=== PATIENT | female | born 1945 | race African-American/Black ===

== ENCOUNTER 2017-09-01 17:44 | Inpatient (IN) | payer MEDICARE ==
[~2017-09-01] VITALS: Ht 165.1 cm; Wt 77.1 kg
[2017-09-01] MEDS ORDERED: ACETAMINOPHEN 325 MG TABLET PO ONE (19:00)
[2017-09-01] MEDS ORDERED: SODIUM CHLORIDE FLUSH 10ML SYR IVF ONE (19:00)
[2017-09-01 19:13] LABS: BASOPHILS # (AUTO) 0.07 x10^3/uL (0-0.1); BASOPHILS % (AUTO) 1 % (0-1); EOSINOPHILS # (AUTO) 0.05 x10^3/uL (0-0.4); EOSINOPHILS % (AUTO) 1 % (1-7); LYMPHOCYTES % (AUTO) 23 % (22-44); MD NO; MEAN CORPUSCULAR HEMOGLOBIN 36.8 pg (27.0-34.8); MEAN CORPUSCULAR HGB CONC 33.8 g/dL (32.4-35.8); MEAN CORPUSCULAR VOLUME 108.9 fL (80-100); MEAN PLATELET VOLUME 8.1 fL (7.4-10.4); MONOCYTES # (AUTO) 0.86 x10^3/uL (0.2-0.8); MONOCYTES % (AUTO) 10 % (2-9); NEUTROPHILS # (AUTO) 5.91 x10^3/uL (1.8-6.8); NEUTROPHILS % (AUTO) 66 % (42-75); PLATELET COUNT 188 x10^3/uL (130-400); RED BLOOD COUNT 4.01 x10^6/uL (3.82-5.3); RED CELL DISTRIBUTION WIDTH 17.4 % (9.6-15.2)
[2017-09-01 19:23] LABS: ALANINE AMINOTRANSFERASE 14 U/L (12-78); ALBUMIN 3.4 g/dL (3.4-5.0); ANION GAP 5 mmol/L (5-15); CHLORIDE 100 mmol/L (98-107); CREATININE 0.81 mg/dL (0.55-1.02)
[2017-09-01 19:26] LABS: ALKALINE PHOSPHATASE 96 U/L (45-117); BILIRUBIN,TOTAL 1.4 mg/dL (0.2-1.0); TOTAL PROTEIN 7.8 g/dL (6.4-8.2)
[2017-09-01] MEDS ORDERED: LIDOCAINE 1%, 10ML INFIL ONE (20:00)
[2017-09-01] MEDS ORDERED: ACETAMINOPHEN 325 MG TABLET ONE (20:10)
[2017-09-01] MEDS ORDERED: LIDOCAINE-MPF 1%, 2ML ONE (20:58)
[2017-09-01 23:15] LABS: HCT (SEDRATE) 40.1 % (34.6-47.8)
[2017-09-02] MEDS ORDERED: KETOROLAC 30 MG/1 ML IVPush ONE
[2017-09-02] MEDS ORDERED: KETOROLAC 30 MG/1 ML ONE (00:05)
[2017-09-02] MEDS ORDERED: POTASSIUM CHLORIDE 40 MEQ in SODIUM CHLORIDE 0.9% 500 ML IV ONE ×3 (00:30→12:00)
[2017-09-02] MEDS ORDERED: BISACODYL 10 MG SUPP PR PRN (00:30)
[2017-09-02] MEDS ORDERED: hydrALAzine 20 MG/ML, 1ML IVPush PRN (00:30)
[2017-09-02] MEDS ORDERED: DOCUSATE 100 MG CAPSULE PO PRN (00:30)
[2017-09-02] MEDS ORDERED: ONDANSETRON 2MG/ML, 2ML IVPush PRN (00:30)
[2017-09-02] MEDS ORDERED: POLYETHYLENE GLYCOL 17 GM PACKET PO PRN (00:30)
[2017-09-02] MEDS ORDERED: KETOROLAC 30 MG/1 ML IVPush PRN (00:30)
[2017-09-02] MEDS ORDERED: ACETAMINOPHEN 325 MG TABLET PO PRN (00:30)
[2017-09-02 01:02] LABS: FOLATE LEVEL 3.7 ng/mL (3.1-17.5)
[2017-09-02 02:33] VITALS: BP 148/80
[2017-09-02 05:19] LABS: BASOPHILS # (AUTO) 0.02 x10^3/uL (0-0.1); BASOPHILS % (AUTO) 0 % (0-1); EOSINOPHILS # (AUTO) 0.07 x10^3/uL (0-0.4); EOSINOPHILS % (AUTO) 1 % (1-7); LYMPHOCYTES # (AUTO) 2.11 x10^3/uL (1-3.4); LYMPHOCYTES % (AUTO) 30 % (22-44); MD NO; MEAN CORPUSCULAR HEMOGLOBIN 36.6 pg (27.0-34.8); MEAN CORPUSCULAR HGB CONC 33.4 g/dL (32.4-35.8); MEAN CORPUSCULAR VOLUME 109.5 fL (80-100); MEAN PLATELET VOLUME 8.4 fL (7.4-10.4); MONOCYTES # (AUTO) 0.83 x10^3/uL (0.2-0.8); MONOCYTES % (AUTO) 12 % (2-9); NEUTROPHILS # (AUTO) 4.02 x10^3/uL (1.8-6.8); NEUTROPHILS % (AUTO) 57 % (42-75); PLATELET COUNT 163 x10^3/uL (130-400); RED BLOOD COUNT 3.32 x10^6/uL (3.82-5.3)
[2017-09-02 05:33] LABS: CHLORIDE 102 mmol/L (98-107)
[2017-09-02 05:40] LABS: ALANINE AMINOTRANSFERASE 12 U/L (12-78); ALBUMIN 2.7 g/dL (3.4-5.0); ALKALINE PHOSPHATASE 98 U/L (45-117); ANION GAP 5 mmol/L (5-15); CALCIUM 8.3 mg/dL (8.5-10.1); CREATININE 0.99 mg/dL (0.55-1.02); TOTAL PROTEIN 6.1 g/dL (6.4-8.2)
[2017-09-02] MEDS ORDERED: MAGNESIUM SULFATE PMX 4GM/100M 100 ML IV ONE ×2 (06:30→07:30)
[2017-09-02] MEDS ORDERED: VANCOMYCIN PER PHARMACY MC PRN (07:30)
[2017-09-02] MEDS ORDERED: MAGNESIUM SULFATE IN WATER 50 ML IV ONE (07:30)
[2017-09-02] MEDS ORDERED: PHARMACOKINETIC CONSULTATION MC ONE (08:00)
[2017-09-02] MEDS ORDERED: PHARMACOKINETIC MONITORING MC PRN (08:00)
[2017-09-02] MEDS ORDERED: POTASSIUM CHLORIDE 20 MEQ TAB.ER.PRT PO SCH (08:00)
[2017-09-02] MEDS: CEFTRIAXONE 2 GM in SODIUM CHLORIDE 0.9% 50 ML IV SCH (08:11)
[2017-09-02] MEDS: FOLIC ACID 1 MG TABLET PO SCH (08:12)
[2017-09-02] MEDS: THIAMINE 100MG TABLET PO SCH (08:12)
[2017-09-02] MEDS: ENOXAPARIN 40 MG/0.4 ML SQ SCH ×3 (08:12→19:58)
[2017-09-02] MEDS: MULTIVITAMIN 1 TABLET PO SCH (08:12)
[2017-09-02] MEDS: SODIUM CHLORIDE FLUSH 10ML SYR IVF SCH ×2 (08:12→19:58)
[2017-09-02] MEDS ORDERED: VANCOMYCIN 1,500 MG in SODIUM CHLORIDE 0.9% 250 ML IV SCH (08:30)
[2017-09-02 12:34] VITALS: BP 147/79
[2017-09-02 19:07] VITALS: BP 132/67
[2017-09-03 02:06] VITALS: BP 134/85
[2017-09-03 05:24] LABS: BASOPHILS # (AUTO) 0.07 x10^3/uL (0-0.1); BASOPHILS % (AUTO) 1 % (0-1); EOSINOPHILS # (AUTO) 0.19 x10^3/uL (0-0.4); EOSINOPHILS % (AUTO) 3 % (1-7); LYMPHOCYTES # (AUTO) 2.06 x10^3/uL (1-3.4); LYMPHOCYTES % (AUTO) 36 % (22-44); MD NO; MEAN CORPUSCULAR HEMOGLOBIN 35.7 pg (27.0-34.8); MEAN CORPUSCULAR HGB CONC 32.9 g/dL (32.4-35.8); MEAN CORPUSCULAR VOLUME 108.7 fL (80-100); MEAN PLATELET VOLUME 8.3 fL (7.4-10.4); MONOCYTES # (AUTO) 0.65 x10^3/uL (0.2-0.8); MONOCYTES % (AUTO) 11 % (2-9); NEUTROPHILS # (AUTO) 2.79 x10^3/uL (1.8-6.8); NEUTROPHILS % (AUTO) 48 % (42-75); PLATELET COUNT 188 x10^3/uL (130-400); RED BLOOD COUNT 3.32 x10^6/uL (3.82-5.3); RED CELL DISTRIBUTION WIDTH 17.3 % (9.6-15.2)
[2017-09-03 05:32] LABS: CALCIUM 8.5 mg/dL (8.5-10.1); CREATININE 0.73 mg/dL (0.55-1.02)
[2017-09-03 05:47] LABS: ANION GAP 5 mmol/L (5-15); CHLORIDE 109 mmol/L (98-107)
[2017-09-03 07:51] VITALS: BP 157/93
[2017-09-03] MEDS: FOLIC ACID 1 MG TABLET PO SCH (08:01)
[2017-09-03] MEDS: THIAMINE 100MG TABLET PO SCH (08:01)
[2017-09-03] MEDS: MULTIVITAMIN 1 TABLET PO SCH (08:01)
[2017-09-03] MEDS: SODIUM CHLORIDE FLUSH 10ML SYR IVF SCH ×2 (09:00→21:00)
[2017-09-03] MEDS: CEFTRIAXONE 2 GM in SODIUM CHLORIDE 0.9% 50 ML IV SCH (09:20)
[2017-09-03 13:30] VITALS: BP 161/77
[2017-09-03 20:46] VITALS: BP 224/97
[2017-09-03 21:28] VITALS: BP 170/81
[2017-09-04] MEDS: ENOXAPARIN 40 MG/0.4 ML SQ SCH (00:30)
[2017-09-04 02:10] VITALS: BP 138/70
[2017-09-04 05:51] LABS: MEAN CORPUSCULAR HEMOGLOBIN 36.2 pg (27.0-34.8); MEAN CORPUSCULAR VOLUME 109.6 fL (80-100); MEAN PLATELET VOLUME 8.1 fL (7.4-10.4); PLATELET COUNT 225 x10^3/uL (130-400); RED BLOOD COUNT 3.49 x10^6/uL (3.82-5.3); RED CELL DISTRIBUTION WIDTH 17.3 % (9.6-15.2)
[2017-09-04 05:54] LABS: ANION GAP 5 mmol/L (5-15); CALCIUM 9.1 mg/dL (8.5-10.1); CHLORIDE 109 mmol/L (98-107); CREATININE 0.98 mg/dL (0.55-1.02)
[2017-09-04 06:14] LABS: BASOPHILS # (AUTO) 0.04 x10^3/uL (0-0.1); BASOPHILS % (AUTO) 1 % (0-1); EOSINOPHILS # (AUTO) 0.03 x10^3/uL (0-0.4); EOSINOPHILS % (AUTO) 0 % (1-7); LYMPHOCYTES # (AUTO) 2.14 x10^3/uL (1-3.4); LYMPHOCYTES % (AUTO) 29 % (22-44); MD SCAN; MONOCYTES # (AUTO) 0.69 x10^3/uL (0.2-0.8); MONOCYTES % (AUTO) 9 % (2-9); NEUTROPHILS % (AUTO) 61 % (42-75)
[2017-09-04 06:36] LABS: HCT (SEDRATE) 38.3 % (34.6-47.8)
[2017-09-04 07:45] VITALS: BP 154/75
[2017-09-04] MEDS: SODIUM CHLORIDE FLUSH 10ML SYR IVF SCH (09:00)
[2017-09-04] MEDS: THIAMINE 100MG TABLET PO SCH (09:21)
[2017-09-04] MEDS: FOLIC ACID 1 MG TABLET PO SCH (09:21)
[2017-09-04] MEDS: MULTIVITAMIN 1 TABLET PO SCH (09:21)
[2017-09-04] MEDS ORDERED: MAGNESIUM CITRATE 300ML ORAL SOL PO ONE (12:30)
[2017-09-04 12:57] VITALS: BP 161/85
[2017-09-04] MEDS ORDERED: PRED20TA PO (14:07)
== END 2017-09-04 18:12 | disposition home or self-care (01) | DRG 554 ==
LOC: ED 19:50 → EDIP 23:42 → 5SO 09-02 02:09 → 4WST 09-02 15:18
PROVIDERS: ADMIT Hospitalist; ATTEND Hospitalist
PROC: 0S9D3ZZ Drainage of Left Knee Joint, Percutaneous Approach (ICD-10-PCS; principal; 2017-09-01)
DX: M11.262 Other chondrocalcinosis, left knee (principal); R17 Unspecified jaundice; M11.9 Crystal arthropathy, unspecified; E87.6 Hypokalemia; F17.210 Nicotine dependence, cigarettes, uncomplicated; D75.89 Other specified diseases of blood and blood-forming organs; E83.42 Hypomagnesemia; I10 Essential (primary) hypertension; M17.12 Unilateral primary osteoarthritis, left knee; R09.02 Hypoxemia; Z66 Do not resuscitate; W18.39XA Other fall on same level, initial encounter; Y93.89 Activity, other specified; Y92.89 Other specified places as the place of occurrence of the external cause; Y99.8 Other external cause status; Z82.49 Family history of ischemic heart disease and other diseases of the circulatory system; Z83.3 Family history of diabetes mellitus; Z90.710 Acquired absence of both cervix and uterus
CPT/HCPCS: 20610; 36415; 80048; 80053; 82607; 82746; 82945; 83605; 83735; 84145; 84157; 84550; 85025; 85651; 85810; 86140; 87040; 87070; 87205; 89050; 89060; 93005; 96374; J0696; J1650; J1885; J2405; J3370; J3480; J0360; J7040; J7050; J7512